=== PATIENT | female | born 1960 | race African-American/Black ===

== ENCOUNTER → 2016-09-12 | Day surgery (SDC) | payer MEDICARE, OTHER ==
[~2016-09-12] VITALS: Ht 165.1 cm; Wt 145.5 kg
[~2016-09-12] MED LIST: ALPR.25 PO; APIX2.5T PO; APLI5INJ2 INJ; BUPIVACAINE/EPINEPHRINE 0.5% PF 30 ML VIAL ONE; CYCL1TAB29 PO; DEXAMETHASONE SOD PHOS 4 MG/ML VIAL ONE; DO NOT ADM ANY ANTICOAGULANT DRUGS XX PRN; DOCU100C PO; FAMOTIDINE 20 MG/2 ML VIAL ONE; FURO1TAB60 PO; HYDR-3366 PO; INSULIN HUMAN REGULAR 1,000 UNITS/10 ML VIAL SQ PRN; LACTATED RINGER'S 1000 ML IV SCH; LIDOCAINE 1%/EPINEPHrine 1:100,000 SOLN 30 ML VIAL ONE; METO25TA3 PO; METOPROLOL TARTRATE 25 MG TAB PO PRN; MIDAZOLAM HCL 2 MG/2 ML VIAL ONE; MILKSUS PO; NEOSTIGMINE 3 MG/3 ML SYR IV ONE; OMEP40CA2 PO; ONDANSETRON HCL 4 MG/2 ML VIAL IV PUSH ONE; OXYBXL5 PO; PRAV40TA2 PO; PRIN20TA2 PO; PROPOFOL 200 MG/20 ML AMP IV ONE; SODIUM CHLORID 0.9% 500 ML IV SCH; SODIUM CHLORIDE 0.9% INJ 100 ML ONE; ceFAZolin 1,000 MG/NS 100 ML IV SCH; ceFAZolin INJ 1,000 MG VIAL ONE
[2016-09-12 07:16] VITALS: BP 123/91; PULSE 75; RESP 22; TEMP 98.5; O2SAT 99
[2016-09-12 07:31] LABS: AUTOMATED NEUTROPHIL # 1.6 TH/MM3 (1.8-7.7); BASOPHIL % 0.6 % (0.0-2.0); EOSINOPHIL # 0.1 TH/MM3 (0-0.4); EOSINOPHIL % 2.7 % (0.0-4.0); HEMATOCRIT 36.8 % (35.0-46.0); HEMO FLAGS DIFF FINAL; LYMPH % 50.2 % (9.0-44.0); LYMPHOCYTE # 2.2 TH/MM3 (1.0-4.8); MEAN CELL VOLUME 92.9 FL (80.0-100.0); MEAN CORPUSCULAR HEMOGLOBIN 30.6 PG (27.0-34.0); MEAN CORPUSCULAR HGB CONC 32.9 % (32.0-36.0); MONO % 9.2 % (0.0-8.0); NEUT % 37.3 % (16.0-70.0); PLATELET COUNT 299 TH/MM3 (150-450); RED BLOOD COUNT 3.96 MIL/MM3 (4.00-5.30); RED CELL DISTRIBUTION WIDTH 13.6 % (11.6-17.2); WHITE BLOOD COUNT 4.4 TH/MM3 (4.0-11.0)
--- NOTE | 2016-09-12 08:58 | PD.OP ---
Operative Report Urinary retention Postoperative Diagnosis: Same Procedure: Cystoscopy with placement of suprapubic tube catheter Anesthesia: Gen. endotracheal tube Surgeon: Silviano Fulton Toll Line Inspector(s): none Operation and Findings: Patient was brought to the operating room and identified by myself as Ania Gallegos. She's placed in dorsal lithotomy position with Trendelenburg. She was prepped and draped in usual sterile fashion preprocedure antibiotics were given. General endotracheal tube anesthesia was administered. Flexible cystoscopy was performed. Some catheter cystitis was identified, however no other abnormalities were noted. The Lousley retractor was placed into the bladder without difficulty. 1% lidocaine with 1% epinephrine was injected over the palpable and the lousy retractor in the suprapubic area. 5 cc were utilized. Using the Bovie on cut, incision was made over the lousy retractor site. The skin and subcutaneous tissues were incised as well as the fascia. Hemostasis was obtained throughout. The retractor then popped through the skin and the catheter was secured to the retractor and brought down into the bladder. Under cystoscopic visualization the Starr balloon was then inserted in good position. Urine was clear. The catheter was secured with a 0 silk suture. She tolerated the procedure well and was transferred currently stable condition. She'll follow-up in one month to have her tube changed in the clinic. Silviano Fulton DO Sep 12, 2016 08:58
[2016-09-12 09:57] VITALS: BP 136/71; PULSE 68; RESP 16; TEMP 97.9; O2SAT 92
== END | disposition home or self-care (01) ==
LOC: HSDC 06:18
PROVIDERS: ATTEND Urology
DX: N31.9 Neuromuscular dysfunction of bladder, unspecified (principal); R33.9 Retention of urine, unspecified; N39.0 Urinary tract infection, site not specified
CPT/HCPCS: 00800; 51102; 85025; J0690; J1100; J2250; J2405; J2710; J3010; J7120

== ENCOUNTER 2017-12-05 22:49 | Inpatient (IN) | END 2017-12-10 13:35 | DRG 699 | DX: T83.518A Infection and inflammatory reaction due to other urinary catheter, initial encounter (principal); N39.0 Urinary tract infection, site not specified; K56.7 Ileus, unspecified; F03.90 Unspecified dementia, unspecified severity, without behavioral disturbance, psychotic disturbance, mood disturbance, and anxiety; Z93.50 Unspecified cystostomy status; E66.01 Morbid (severe) obesity due to excess calories; E87.6 Hypokalemia; G47.30 Sleep apnea, unspecified; Z86.73 Personal history of transient ischemic attack (TIA), and cerebral infarction without residual deficits; Z87.440 Personal history of urinary (tract) infections ==